=== PATIENT | female | born 1965 | race Caucasian/White ===

== ENCOUNTER 2017-08-16 08:26 | Emergency (ER) | payer OTHER ==
[~2017-08-16] VITALS: Ht 157.5 cm; Wt 74.8 kg
[2017-08-16] MEDS ORDERED: OMEPRAZOLE20 MG PO (08:45)
== END 2017-08-16 09:00 | disposition home or self-care (01) ==
LOC: ED 08:26
DX: H00.12 Chalazion right lower eyelid (principal); F17.200 Nicotine dependence, unspecified, uncomplicated; Z88.5 Allergy status to narcotic agent; Z79.899 Other long term (current) drug therapy
CPT/HCPCS: 99282

== ENCOUNTER 2018-08-04 07:15 | Emergency (ER) | payer OTHER ==
[~2018-08-04] VITALS: Ht 157.5 cm; Wt 74.8 kg
[~2018-08-04 07:15] MED LIST: OMEPRAZOLE20 MG PO
[2018-08-04] MEDS ORDERED: IBUPROFEN600 MG PO (08:07)
== END 2018-08-04 08:16 | disposition home or self-care (01) ==
LOC: ED 07:15
DX: S06.0X9A Concussion with loss of consciousness of unspecified duration, initial encounter (principal); E78.00 Pure hypercholesterolemia, unspecified; Z85.41 Personal history of malignant neoplasm of cervix uteri; F17.200 Nicotine dependence, unspecified, uncomplicated; Z90.710 Acquired absence of both cervix and uterus; Z88.5 Allergy status to narcotic agent; Z79.899 Other long term (current) drug therapy; W00.9XXA Unspecified fall due to ice and snow, initial encounter; W22.8XXA Striking against or struck by other objects, initial encounter
CPT/HCPCS: 70450; 99283-25